=== PATIENT | female | born 1995 | race African-American/Black ===

== ENCOUNTER 2016-03-01 22:03 | Emergency (ER) | payer BC ==
[~2016-03-01] VITALS: Ht 157.5 cm; Wt 69.8 kg
[~2016-03-01 22:03] MED LIST: CELEXA20 MG PO; FLEXERIL PO; IBUPROFEN 600600 M1 PO; MACROBID 100 M100 M1 PO; NAPROSYN500 MG PO; NORCO 5-325 TA1 EACH PO; ONDANSETRON HCL4 M2 PO; PROTONIX40 M1 PO
[2016-03-01 22:22] LABS: URINE BILIRUBIN NEGATIVE (Negative); URINE BLOOD NEGATIVE (Negative); URINE COLOR YELLOW; URINE GLUCOSE-RANDOM* NEGATIVE (Negative); URINE KETONES NEGATIVE (Negative); URINE NITRITE NEGATIVE (Negative); URINE PROTEIN (DIPSTICK) NEGATIVE (Negative); URINE SPECIFIC GRAVITY >= 1.030 (1.003-1.035); URINE UROBILINOGEN 0.2 E.U./dl (0.2-1.0)
[2016-03-01 22:29] LABS: ABSOLUTE NEUTROPHILS 2.6 thou/uL (1.4-8.2); BASOPHILS 1.1 % (0.0-2.0); EOSINOPHILS 1.8 % (0.0-3.0); HEMATOCRIT 43.7 % (37.0-47.0); HEMOGLOBIN 14.9 gm/dL (12.0-15.0); LYMPHOCYTES 46.1 % (24.0-44.0); MCH 30.5 pg (26.0-34.0); MCHC 34.1 % (28.0-37.0); MCV 89.4 fL (80.0-100.0); MONOCYTES 9.3 % (1.0-8.0); PLATELET COUNT 302 thou/uL (150-400); POLYS 41.7 % (36.0-66.0); RBC 4.89 mil/uL (4.20-5.00); RDW 13.3 % (10.5-14.5); WBC 6.3 thou/uL (4.0-11.0)
[2016-03-01 22:32] LABS: MANUAL DIFF NO
[2016-03-01 22:43] LABS: CREATININE 0.8 mg/dL (0.6-1.3); POTASSIUM 3.8 mmol/L (3.5-5.1)
[2016-03-01 22:51] LABS: ALBUMIN 4.4 g/dL (3.4-5.0); TOTAL BILIRUBIN 0.8 mg/dL (<0.1-1.0); TOTAL PROTEIN 7.8 g/dL (6.4-8.2)
[2016-03-01] MEDS ORDERED: PEPCID20 MG PO (22:56)
[2016-03-01] MEDS ORDERED: PHENERGAN 25 MG25 M1 PO (22:56)
[2016-03-01 23:11] VITALS: BP 109/69
== END 2016-03-01 23:20 | disposition home or self-care (01) ==
LOC: ER 22:03
PROVIDERS: Physician Assistant
DX: R11.2 Nausea with vomiting, unspecified (principal); T36.95XA Adverse effect of unspecified systemic antibiotic, initial encounter; F10.99 Alcohol use, unspecified with unspecified alcohol-induced disorder; Y92.9 Unspecified place or not applicable